=== PATIENT | male | born 1995 | race Caucasian/White ===

== ENCOUNTER → 2017-11-20 | Outpatient (REF) | payer OTHER ==
[2017-11-20 20:40] LABS: CHLAMYDIA DNA AMPLIFICATION NEGATIVE (NEGATIVE); GC DNA AMPLIFICATION NEGATIVE (NEGATIVE)
== END ==
LOC: M SFHCLERA 12:19
DX: R36.9 Urethral discharge, unspecified (principal); K14.8 Other diseases of tongue